=== PATIENT | female | born 1960 | race African-American/Black ===

== ENCOUNTER 2025-06-14 02:20 | Inpatient (IN) | payer OTHER ==
[~2025-06-14] VITALS: Ht 172.7 cm; Wt 53.5 kg
[2025-06-14] MEDS ORDERED: HYDROCODONE/APAP 5/325MG TABLET ONE (03:01)
[2025-06-14] MEDS: HYDROCODONE/APAP 5/325MG TABLET PO ONE (03:15)
[2025-06-14] MEDS ORDERED: ASPIRIN 325 MG TABLET ONE (03:21)
[2025-06-14 03:23] LABS: PLATELET COUNT (AUTO) 127 K/uL (150-450); RED BLOOD CELL COUNT(AUTO) 3.54 MIL/uL (4.0-5.2); RED CELL DISTRIBUTION WIDTH 15.3 % (11.5-15.0); WHITE BLOOD COUNT (AUTO) 6.2 K/uL (4.3-11.0)
[2025-06-14 03:30] LABS: CALCIUM, SERUM 9.7 mg/dL (8.5-10.1); CREATININE 4.5 mg/dL (0.6-1.3); SODIUM SERUM 136 mmol/L (136-145); UREA NITROGEN, BLOOD 64 mg/dL (7-18)
[2025-06-14] MEDS: ASPIRIN 325 MG TABLET PO ONE (03:30)
[2025-06-14 03:37] LABS: INR 1.03 (0.91-1.10)
[2025-06-14 08:20] VITALS: O2SAT 99
[2025-06-14] MEDS ORDERED: MAG HYDROX/AL HYDROX/SIMETH 30 ML UDC PO PRN (08:30)
[2025-06-14] MEDS ORDERED: MAGNESIUM HYDROXIDE 30 ML UDC PO PRN (08:30)
[2025-06-14] MEDS ORDERED: ONDANSETRON HCL/PF 4 MG/2 ML VIAL IVP PRN (08:30)
[2025-06-14 08:45] VITALS: BP 99/65; TEMP 97.9; O2SAT 100
[2025-06-14] MEDS ORDERED: FURO40TA5 PO (09:06)
[2025-06-14] MEDS ORDERED: IBUP-1490 PO (09:06)
[2025-06-14] MEDS ORDERED: METO25TA6 PO (09:06)
[2025-06-14] MEDS ORDERED: DOCU100C36 PO (09:06)
[2025-06-14] MEDS ORDERED: SEVE0.8P3 PO (09:06)
[2025-06-14] MEDS ORDERED: BISA10SU11 RC (09:06)
[2025-06-14] MEDS ORDERED: AMLO-213 PO (09:06)
[2025-06-14] MEDS ORDERED: MAGN400O6 PO (09:06)
[2025-06-14] MEDS ORDERED: FOLI0.8T23 PO (09:06)
[2025-06-14] MEDS ORDERED: ACET325T53 PO (09:06)
[2025-06-14] MEDS ORDERED: CINA30TA2 PO (09:06)
[2025-06-14] MEDS ORDERED: HYDR-4303 PO (09:06)
[2025-06-14] MEDS ORDERED: ACET-73 PO (09:06)
[2025-06-14] MEDS ORDERED: LEVE500S9 PO (09:06)
[2025-06-14 12:25] VITALS: BP 93/66; TEMP 97.9; O2SAT 97
[2025-06-14 16:00] VITALS: BP 121/78; TEMP 98.1; O2SAT 100
[2025-06-14] MEDS: ACETAMINOPHEN 325 MG TABLET PO PRN (18:10)
[2025-06-14 20:00] VITALS: BP 114/78; TEMP 97.7; O2SAT 100
[2025-06-15 07:26] LABS: PLATELET COUNT (AUTO) 141 K/uL (150-450); RED BLOOD CELL COUNT(AUTO) 3.40 MIL/uL (4.0-5.2); RED CELL DISTRIBUTION WIDTH 15.4 % (11.5-15.0); WHITE BLOOD COUNT (AUTO) 5.1 K/uL (4.3-11.0)
[2025-06-15] MEDS: PANTOPRAZOLE 40 MG TABLET.DR PO SCH (07:30)
[2025-06-15 07:45] LABS: CALCIUM, SERUM 9.7 mg/dL (8.5-10.1); CREATININE 5.6 mg/dL (0.6-1.3); PHOSPHORUS 5.9 mg/dL (2.5-4.9); SODIUM SERUM 140.0 mmol/L (136-145); UREA NITROGEN, BLOOD 77.0 mg/dL (7-18)
[2025-06-15 08:00] VITALS: BP 101/77; TEMP 97.5; O2SAT 98
[2025-06-15] MEDS: ASPIRIN 81 MG TAB.CHEW PO SCH (09:00)
[2025-06-15] MEDS ORDERED: ANESTHESIA TRAY IN PYXIS 1 EA TRAY MC ONE (12:22)
[2025-06-15 13:24] LABS: CALCIUM, SERUM 10.2 mg/dL (8.5-10.1); SODIUM SERUM 140.0 mmol/L (136-145)
[2025-06-15 13:33] LABS: CREATININE 5.8 mg/dL (0.6-1.3)
[2025-06-15 13:35] LABS: UREA NITROGEN, BLOOD 80.0 mg/dL (7-18)
[2025-06-15] MEDS ORDERED: LIDOCAINE HCL/MPF 1% 30 ML VIAL IJ ONE (17:14)
[2025-06-15] MEDS ORDERED: HEPARIN SODIUM, PORCINE 1,000 UNIT/ML VIAL ONE (17:14)
[2025-06-15] MEDS ORDERED: BACITRACIN ZINC OINT (15 GM) 15 GM TUBE TP ONE (18:42)
[2025-06-15 20:00] VITALS: BP 138/92; TEMP 97.5; O2SAT 99
[2025-06-15] MEDS: HYDROCODONE/APAP 10/325MG TABLET PO PRN (21:02)
[2025-06-15] MEDS ORDERED: ALBUMIN 25% 100 ML IV ONE (23:25)
[2025-06-15] MEDS: ALBUMIN 25% 12.5 GM/50 ML BOTTLE IV ONE (23:55)
[2025-06-16] MEDS: ANCEF 1 GM/50 ML D5W IV SCH (02:03)
[2025-06-16 02:25] VITALS: BP 118/87; TEMP 97.6
[2025-06-16 07:45] LABS: CALCIUM, SERUM 10.4 mg/dL (8.5-10.1); CREATININE 5.2 mg/dL (0.6-1.3); PHOSPHORUS 5.4 mg/dL (2.5-4.9); SODIUM SERUM 139.0 mmol/L (136-145); UREA NITROGEN, BLOOD 70.0 mg/dL (7-18)
[2025-06-16 09:35] VITALS: BP 113/71; TEMP 97.5; O2SAT 97
[2025-06-16 10:25] LABS: PLATELET COUNT (AUTO) 117 K/uL (150-450); RED BLOOD CELL COUNT(AUTO) 3.10 MIL/uL (4.0-5.2); RED CELL DISTRIBUTION WIDTH 15.1 % (11.5-15.0); WHITE BLOOD COUNT (AUTO) 4.2 K/uL (4.3-11.0)
[2025-06-16] MEDS: HYDROCODONE/APAP 5/325MG TABLET PO PRN (15:27)
== END 2025-06-16 15:50 | DRG 206 ==
LOC: ER 02:29 → MED 06:47
PROC: 0J2SXYZ Change Other Device in Head and Neck Subcutaneous Tissue and Fascia, External Approach (ICD-10-PCS; 2025-06-15)
PROC: 5A1D70Z Performance of Urinary Filtration, Intermittent, Less than 6 Hours Per Day (ICD-10-PCS; principal; 2025-06-15 18:00)
DX: T82.41XA Breakdown (mechanical) of vascular dialysis catheter, initial encounter (principal); G93.41 Metabolic encephalopathy; Z66 Do not resuscitate; I69.354 Hemiplegia and hemiparesis following cerebral infarction affecting left non-dominant side; D63.8 Anemia in other chronic diseases classified elsewhere; I95.3 Hypotension of hemodialysis; N18.6 End stage renal disease; I12.0 Hypertensive chronic kidney disease with stage 5 chronic kidney disease or end stage renal disease; Z99.2 Dependence on renal dialysis; R07.89 Other chest pain; E87.70 Fluid overload, unspecified; Y83.8 Other surgical procedures as the cause of abnormal reaction of the patient, or of later complication, without mention of misadventure at the time of the procedure; Y71.2 Prosthetic and other implants, materials and accessory cardiovascular devices associated with adverse incidents; Y92.128 Other place in nursing home as the place of occurrence of the external cause; Z88.0 Allergy status to penicillin; K21.9 Gastro-esophageal reflux disease without esophagitis
CPT/HCPCS: 36415; 71045-TC; 73020; 80048-TC; 83735-TC; 84100-TC; 84484-TC; 85025-TC; 85730-TC; 86317; 86803; 86850-TC; 87081-TC; 87340; 90935-TC; 93307-TC; A4223; C1750; G0378; J0690; J1644; J2704; J3490; J7030; J7060; P9047